=== PATIENT | female | born 1995 | race Caucasian/White ===

== ENCOUNTER 2016-10-20 13:55 | Emergency (ER) | payer BC, OTHER ==
[~2016-10-20] VITALS: Ht 162.6 cm; Wt 59.5 kg
[2016-10-20 14:22] VITALS: Ht 162.6 cm; Wt 59.5 kg
[2016-10-20] MEDS ORDERED: IBUPROFEN 600 MG TAB PO ONE (15:30)
[2016-10-20 15:37] LABS: URINE BLOOD (Dip) POC Negative (NEGATIVE)
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
[2016-10-20] MEDS ORDERED: IBUP-1542 PO (17:44)
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
== END 2016-10-20 18:04 | disposition home or self-care (01) ==
LOC: FTE 13:55
DX: S49.92XA Unspecified injury of left shoulder and upper arm, initial encounter (principal); S29.9XXA Unspecified injury of thorax, initial encounter; S19.9XXA Unspecified injury of neck, initial encounter; J45.909 Unspecified asthma, uncomplicated; F17.210 Nicotine dependence, cigarettes, uncomplicated; S69.92XA Unspecified injury of left wrist, hand and finger(s), initial encounter; S59.902A Unspecified injury of left elbow, initial encounter; S79.922A Unspecified injury of left thigh, initial encounter; V13.4XXA Pedal cycle driver injured in collision with car, pick-up truck or van in traffic accident, initial encounter
CPT/HCPCS: 72040; 72072; 73030; 73060; 73080; 73110; 73130; 73550; 81003; Z7502; Z7610

== ENCOUNTER 2017-12-25 18:21 | Outpatient (CLI) | END 2017-12-25 20:00 | disposition home or self-care (01) ==

== ENCOUNTER 2018-01-12 10:45 | Inpatient (IN) | END 2018-01-16 16:34 | disposition home or self-care (01) | DRG 788 ==